=== PATIENT | female | born 1950 | race African-American/Black ===

== ENCOUNTER 2017-05-25 13:53 | Outpatient (CLI) | payer MEDICARE ==
[2017-05-25 20:18] LABS: Bilirubin Negative (Negative); Blood, Urine Trace (Negative); Clarity Clear (Clear); Glucose, Urine (Dipstick) Negative (Negative); Leukocyte Small (Negative); Nitrite Negative (Negative); Protein, Urine (Dipstick) Negative (Neg-Trace); Urobilinogen 0.2 mg/dL (0.2-1.0); pH, Urine 5.5 (5.0-9.0)
[2017-05-26 12:38] LABS: ALT (SGPT) 21 U/L (8-55); AST (SGOT) 27 U/L (5-34); Albumin 4.4 g/dL (3.4-4.8); Alkaline Phosphatase 103 U/L (40-150); Anion Gap 14 mmol/L (10-20); BUN (Urea Nitrogen) 14 mg/dL (9.8-20.1); Bilirubin, Total 0.3 mg/dL (0.2-1.2); Calc. Creatinine Clearance 0 mL/min (70-130); Calcium 9.6 mg/dL (7.8-10.44); Carbon Dioxide 27 mmol/L (23-31); Chloride 102 mmol/L (98-107); Cholesterol 225 mg/dl (< 200 Desired); Estimated GFR-MDRD 83; Globulin 3.4 g/dL (2.4-3.5); Glucose 88 mg/dL (80-115); HDL Cholesterol 75 mg/dL (>60 Neg Risk); LDL Cholesterol, Calculated 132 mg/dL; Potassium 3.7 mmol/L (3.5-5.1); Protein, Total 7.8 g/dL (6.0-8.3); Sodium 139 mmol/L (136-145); Triglycerides 90 mg/dL (Less than 150)
[2017-05-26 12:58] LABS: Hemoglobin A1c 5.6 % (4.0-6.0)
[2017-05-26 13:40] LABS: Eosinophils 1 % (0-10); Hemoglobin 12.5 g/dL (12.0-16.0); Lymphocytes 38 % (21-51); MDiff Complete? YES; Mean Corpuscular HGB CONC 31.8 g/dL (32.0-36.0); Mean Corpuscular Hemoglobin 29.1 pg (27.0-31.0); Mean Corpuscular Volume 91.6 fl (81.0-99.0); Mean Platelet Volume 7.3 fL (7.4-10.4); Monocytes 7 % (0-10); Neutrophil 54 % (42-75); PLT Morphology Comment Appears Adequate; Platelet Count 311 thou/uL (130-400); RBC Distribution Width 12.1 % (11.5-14.5); White Blood Cell (WBC) Count 6.9 thou/uL (4.8-10.8)
[2017-05-26 13:49] LABS: Bacteria/HPF Rare-Few HPF (None Seen); RBC/HPF 0-3 HPF (0-3); Specific Gravity, Urine 1.005 (1.002-1.036); Squamous Epithelial 0-3 HPF (0-3); WBC/HPF 0-3 HPF (0-3)
== END 2017-05-25 13:54 | disposition home or self-care (01) ==
LOC: NAVSJIPCSP 13:53
PROVIDERS: ATTEND Internal Medicine
DX: I10 Essential (primary) hypertension (principal); Z79.899 Other long term (current) drug therapy
CPT/HCPCS: 36415; 80053; 80061; 81003; 81015; 83036; 84443; 85025

== ENCOUNTER 2017-06-23 10:21 | Outpatient (CLI) | payer MEDICARE ==
--- NOTE | 2017-06-23 11:50 | RAD ---
THREE VIEWS OF THE RIGHT FOOT: Indication: Right foot pain. Comparison: None. FINDINGS: There is mild great toe entity osteoarthrosis. No acute fracture or subluxation is evident. Lisfranc alignment is preserved. Soft tissue are within normal limits. IMPRESSION: No acute osseous abnormality. POS: [facility]
== END 2017-06-23 10:22 | disposition home or self-care (01) ==
LOC: NAV RAD 10:21
PROVIDERS: ATTEND Internal Medicine
DX: M19.90 Unspecified osteoarthritis, unspecified site (principal)

== ENCOUNTER 2017-11-24 08:40 | Outpatient (CLI) | payer MEDICARE ==
--- NOTE | 2017-11-24 09:58 | RAD ---
RIGHT KNEE FOUR VIEWS: History: Right knee pain. FINDINGS: There are arthritic changes of the knee with tricompartment degenerative changes most pronounced in t he patellofemoral joint space. No fracture or joint effusion. IMPRESSION: Moderate osteoarthritic changes of the knee. POS: [facility]
== END 2017-11-24 08:41 | disposition home or self-care (01) ==
LOC: NAV RAD 08:40
PROVIDERS: ATTEND Internal Medicine
DX: M19.90 Unspecified osteoarthritis, unspecified site (principal); M17.11 Unilateral primary osteoarthritis, right knee